=== PATIENT | male | born 1980 | race African-American/Black ===

== ENCOUNTER 2017-11-26 14:27 | Emergency (ER) | payer BC, SELFPAY ==
[2017-11-26] MEDS ORDERED: Ketorolac Tromethamine 30 MG/ML VIAL ONE (15:43)
--- NOTE | 2017-11-26 15:55 | RAD ---
THREE VIEWS RIGHT HAND: HISTORY: Pain. COMPARISON: 02/11/05. FINDINGS: There appears to be a nondisplaced fracture involving the 4th metacarpal. Periosteal reaction is not ed suggesting a subacute process. Correlate clinically. Additional fractures are not appreciated. There is soft tissue swelling involving the third digit and fourth digit, at the level of the proxima l interphalangeal joint spaces. IMPRESSION: Probable subacute fracture involving the 4th metacarpal. POS: [facility]
== END 2017-11-26 16:25 | disposition home or self-care (01) ==
LOC: ERS 14:27
DX: S62.306A Unspecified fracture of fifth metacarpal bone, right hand, initial encounter for closed fracture (principal); F17.210 Nicotine dependence, cigarettes, uncomplicated; W19.XXXA Unspecified fall, initial encounter
CPT/HCPCS: 29125; 96372; J1885

== ENCOUNTER 2019-04-03 19:51 | Emergency (ER) | payer SELFPAY ==
[2019-04-03] MEDS ORDERED: Lidocaine 1% (PF) 30 ML VIAL ONE (20:54)
[2019-04-03] MEDS ORDERED: Ibuprofen 200 MG TAB ONE (21:47)
== END 2019-04-03 21:54 | disposition home or self-care (01) ==
LOC: ERS 19:51
DX: L73.2 Hidradenitis suppurativa (principal); L02.414 Cutaneous abscess of left upper limb; Z87.891 Personal history of nicotine dependence
CPT/HCPCS: 10060; 87070; 87077; 87186; 87205; J2001

== ENCOUNTER 2020-02-02 00:03 | Emergency (ER) | payer SELFPAY ==
[2020-02-02] MEDS ORDERED: Adacel (T-DAP) 0.5 ML SYRINGE ONE (00:53)
== END 2020-02-02 01:17 | disposition home or self-care (01) ==
LOC: ERS 00:03
DX: S01.01XA Laceration without foreign body of scalp, initial encounter (principal); S61.212A Laceration without foreign body of right middle finger without damage to nail, initial encounter; Z23 Encounter for immunization; Z87.891 Personal history of nicotine dependence; Y04.0XXA Assault by unarmed brawl or fight, initial encounter
CPT/HCPCS: 12001; 90471; 90715